=== PATIENT | female | born 1990 | race African-American/Black ===

== ENCOUNTER 2016-11-22 15:44 | Emergency (ER) | payer SELFPAY ==
[~2016-11-22] VITALS: Ht 165.1 cm; Wt 110.4 kg
[2016-11-22 16:38] LABS: HEMATOCRIT 34.8 % (36.0-46.0); MCH 25.9 PG (29.0-34.0); MCHC 34.5 G/DL (30.0-36.0); MCV 75.2 FL (83-99); MEAN PLAT.VOLUME 10.8 uM^3 (9.5-12.4); PLATELET COUNT 223 K/uL (156-360); RBC DIS.WIDTH-CV 13.3 % (11.8-14.6); RBC DIS.WIDTH-SD 35.5 % (39-53); RED BLOOD COUNT 4.63 M/uL (3.80-5.20); WHITE BLOOD COUNT 5.5 K/uL (4.1-10.2)
[2016-11-22 16:49] LABS: D-DIMER ELISA 0.55 mg/L FEU (< 0.57)
[2016-11-22 16:51] LABS: CHLORIDE 106 mEq/L (99-109); POTASSIUM 3.7 mEq/L (3.7-5.4); SODIUM 139 mEq/L (136-147)
[2016-11-22 16:53] LABS: GLUCOSE 100 mg/dL (70-99)
[2016-11-22 16:54] LABS: ANION GAP 7 MEQ/L (2-14)
[2016-11-22 16:56] LABS: GFR ESTIMATE (CALCULATED) > 59 mL/min/
[2016-11-22 16:57] LABS: UREA NITROGEN (BUN) 9 mg/dL (9-23)
[2016-11-22 17:05] LABS: TROP-I INTERPRETATION NEGATIVE; TROPONIN-I < 0.01 ng/mL (0.0-0.30)
[2016-11-22 17:06] LABS: QUANTITATIVE HCG < 4.0 MIU/ML
[2016-11-22 20:22] VITALS: BP 114/72
== END 2016-11-22 20:33 | disposition home or self-care (01) ==
LOC: EME 15:44 → EDBD 15:44 → EME 20:33
PROVIDERS: Emergency Medicine
DX: R07.89 Other chest pain (principal); Z86.718 Personal history of other venous thrombosis and embolism
CPT/HCPCS: 71020; 71275; 80048; 84484; 84702; 85027; 85379; 93005; 99281; 99284